=== PATIENT | male | born 1950 | race Caucasian/White ===

== ENCOUNTER 2017-07-23 06:09 | Observation (INO) | payer MEDICARE, BC ==
[~2017-07-23] VITALS: Ht 170.2 cm; Wt 75.8 kg
[2017-07-23] VITALS (13 sets, daily range): BP systolic 102–135; BP diastolic 66–82; PULSE 66–82; RESP 16–41; TEMP 97.5–98.8; O2SAT 94–100
[~2017-07-23 06:09] MED LIST: DOXY100T PO; SULF-154 PO; Z.0.NO CURRENT MEDS
[2017-07-23] MEDS ORDERED: diphenhydrAMINE HCL 50 MG/ML VIAL IVP ONE (06:30)
[2017-07-23] MEDS ORDERED: FAMOTIDINE 20 MG/2 ML VIAL IV PUSH ONE (06:30)
[2017-07-23] MEDS ORDERED: EPINEPHrine HCL (1:1000) 1 MG/ML VIAL IM ONE ×2 (06:30→06:45)
[2017-07-23] MEDS ORDERED: methylPREDNISolone SOD SUCC 125 MG/2 ML VIAL IV PUSH ONE (06:30)
[2017-07-23] MEDS ORDERED: SODIUM CHLORIDE 0.9% FLUSH 10 ML FLUSH IV FLUSH PRN ×2 (06:30→15:45)
[2017-07-23] MEDS ORDERED: LISI10TA3 PO (06:33)
[2017-07-23] MEDS ORDERED: ATOR20TA15 PO (06:33)
[2017-07-23 06:34] LABS: AUTOMATED NEUTROPHIL # 4.3 TH/MM3 (1.8-7.7); BASOPHIL # 0.1 TH/MM3 (0-0.2); BASOPHIL % 0.9 % (0.0-2.0); EOSINOPHIL # 0.3 TH/MM3 (0-0.4); EOSINOPHIL % 4.9 % (0.0-4.0); HEMATOCRIT 31.5 % (39.0-51.0); HEMOGLOBIN 10.6 GM/DL (13.0-17.0); LYMPH % 17.9 % (9.0-44.0); LYMPHOCYTE # 1.1 TH/MM3 (1.0-4.8); MEAN CELL VOLUME 91.5 FL (80.0-100.0); MEAN CORPUSCULAR HEMOGLOBIN 30.7 PG (27.0-34.0); MEAN CORPUSCULAR HGB CONC 33.6 % (32.0-36.0); MEAN PLATELET VOLUME 6.7 FL (7.0-11.0); MONO % 7.2 % (0.0-8.0); MONOCYTE # 0.4 TH/MM3 (0-0.9); NEUT % 69.1 % (16.0-70.0); PLATELET COUNT 320 TH/MM3 (150-450); RED BLOOD COUNT 3.45 MIL/MM3 (4.50-5.90); RED CELL DISTRIBUTION WIDTH 12.1 % (11.6-17.2); WHITE BLOOD COUNT 6.2 TH/MM3 (4.0-11.0)
[2017-07-23 06:44] LABS: CALCIUM 8.7 MG/DL (8.5-10.1)
[2017-07-23 06:45] LABS: BICARBONATE 26.8 MEQ/L (21.0-32.0)
[2017-07-23 06:48] LABS: CREATININE 1.1 MG/DL (0.60-1.30)
--- NOTE | 2017-07-23 07:07 | PD ---
HPI Chief Complaint: ENT Complaint Time Seen by Provider: 06:19 Travel History International Travel<30 days: No Contact w/Intl Traveler<30days: No Traveled to known affect area: No History of Present Illness HPI The patient is a 67-year-old male that awoke today at 0430 with swelling in his throat. The swelling is symmetrical and it does not make his throat sore. He denies any fever. He has no known allergies. He is not short of breath and it does not block his airway. It feels like a "lump in the throat". He does take lisinopril. PFSH Past Medical History Cancer: Yes (prostate) High Cholesterol: Yes Diabetes: Yes Diminished Hearing: No Hypertension: Yes Tetanus Vaccination: > 5 Years Influenza Vaccination: Yes ?: Not Past Surgical History Prostatectomy: Yes Social History Alcohol Use: No Tobacco Use: No Substance Use: No Allergies-Medications (Allergen,Severity, Reaction): Coded Allergies: No Known Allergies (Verified Adverse Reaction, Unknown, 07/23/17) Reported Meds & Prescriptions Reported Meds & Active Scripts Active Reported Atorvastatin (Atorvastatin Calcium) 20 Mg Tab 20 Mg PO DAILY Lisinopril 10 Mg Tab 10 Mg PO DAILY Review of Systems Except as stated in HPI: all other systems reviewed are Neg Physical Exam Narrative GENERAL: The patient is alert, oriented 3 in no respiratory distress or any other distress. His vital signs are normal. SKIN: Focused skin assessment warm/dry. HEAD: Atraumatic. Normocephalic. EYES: Pupils equal and round. No scleral icterus. No injection or drainage. ENT: No nasal bleeding or discharge. Mucous membranes pink and moist. The throat shows a swollen uvula and symmetrically swollen tonsils and soft palate. There is no airway obstruction. There is erythema present without exudate. No abscess is noted. NECK: Trachea midline. No JVD. CARDIOVASCULAR: Regular rate and rhythm. No murmur appreciated. RESPIRATORY: No accessory muscle use. Clear to auscultation. Breath sounds equal bilaterally. GASTROINTESTINAL: Abdomen soft, non-tender, nondistended. Hepatic and splenic margins not palpable. MUSCULOSKELETAL: No obvious deformities. No clubbing. No cyanosis. No edema. NEUROLOGICAL: Awake and alert. No obvious cranial nerve deficits. Motor grossly within normal limits. Normal speech. PSYCHIATRIC: Appropriate mood and affect; insight and judgment normal. Data Data Last Documented VS Vital Signs Date Time Temp Pulse Resp B/P (MAP) Pulse Ox O2 Delivery O2 Flow Rate FiO2 07/23/17 06:51 99 Room Air 07/23/17 06:39 74 133/76 07/23/17 06:30 98.6 16 Orders Orders Basic Metabolic Panel (Bmp) (07/23/17 06:19) Complete Blood Count With Diff (07/23/17 06:19) Ecg Monitoring (07/23/17 06:19) Iv Access Insert/Monitor (07/23/17:19) Oximetry (07/23/17 06:19) Diphenhydramine Inj (Benadryl Inj) (07/23/17 06:30) Methylprednisolone So Succ Inj (Solumedr (07/23/17 06:30) Famotidine Inj (Pepcid Inj) (07/23/17 06:30) Sodium Chloride 0.9% Flush (Ns Flush) (07/23/17 06:30) Epinephrine (1:1000) Inj (Adrenalin (1:1 (07/23/17 06:30) Group A Rapid Strep Screen (07/23/17 06:19) Epinephrine (1:1000) Inj (Adrenalin (1:1 (07/23/17 06:45) Strep Culture (Group A) (07/23/17 06:25) Labs Laboratory Tests Test 07/23/17 06:20 White Blood Count 6.2 TH/MM3 Red Blood Count 3.45 MIL/MM3 Hemoglobin 10.6 GM/DL Hematocrit 31.5 % Mean Corpuscular Volume 91.5 FL Mean Corpuscular Hemoglobin 30.7 PG Mean Corpuscular Hemoglobin Concent 33.6 % Red Cell Distribution Width 12.1 % Platelet Count 320 TH/MM3 Mean Platelet Volume 6.7 FL Neutrophils (%) (Auto) 69.1 % Lymphocytes (%) (Auto) 17.9 % Monocytes (%) (Auto) 7.2 % Eosinophils (%) (Auto) 4.9 % Basophils (%) (Auto) 0.9 % Neutrophils # (Auto) 4.3 TH/MM3 Lymphocytes # (Auto) 1.1 TH/MM3 Monocytes # (Auto) 0.4 TH/MM3 Eosinophils # (Auto) 0.3 TH/MM3 Basophils # (Auto) 0.1 TH/MM3 CBC Comment DIFF FINAL Differential Comment Blood Urea Nitrogen 27 MG/DL Creatinine 1.10 MG/DL Random Glucose 154 MG/DL Calcium Level 8.7 MG/DL Sodium Level 136 MEQ/L Potassium Level 3.9 MEQ/L Chloride Level 102 MEQ/L Carbon Dioxide Level 26.8 MEQ/L Anion Gap 7 MEQ/L Estimat Glomerular Filtration Rate 67 ML/MIN MDM Medical Decision Making Medical Screen Exam Complete: Yes Emergency Medical Condition: Yes Medical Record Reviewed: Yes Interpretation(s) The strep screen is negative for group A strep antigen. Differential Diagnosis Strep pharyngitis, uveitis, allergic reaction, lisinopril angioedema-unlikely Narrative Course It is now 70 6 in the morning and the patient is transferred to Dr. Riggs. Toño Leos MD Jul 23, 2017 07:07
--- NOTE | 2017-07-23 09:57 | PD ---
Physical Exam Narrative GENERAL: 67-year-old male whose speech is affected from swelling to uvula SKIN: Focused skin assessment warm/dry. HEAD: Atraumatic. Normocephalic. EYES: Pupils equal and round. No scleral icterus. No injection or drainage. ENT: No nasal bleeding or discharge. Mucous membranes pink and moist. Swelling to uvula noted NECK: Trachea midline. No JVD. CARDIOVASCULAR: Regular rate and rhythm. RESPIRATORY: No accessory muscle use. Clear to auscultation. Breath sounds equal bilaterally. MUSCULOSKELETAL: No obvious deformities. No clubbing. No cyanosis. No edema. NEUROLOGICAL: Awake and alert. No obvious cranial nerve deficits. Motor grossly within normal limits PSYCHIATRIC: Appropriate mood and affect; insight and judgment normal. Data Data Last Documented VS Vital Signs Date Time Temp Pulse Resp B/P (MAP) Pulse Ox O2 Delivery O2 Flow Rate FiO2 07/23/17 07:52 76 18 128/67 (87) 97 Room Air 07/23/17 06:30 98.6 Orders Orders Basic Metabolic Panel (Bmp) (07/23/17 06:19) Complete Blood Count With Diff (07/23/17 06:19) Ecg Monitoring (07/23/17 06:19) Iv Access Insert/Monitor (07/23/17 06:19) Oximetry (07/23/17 06:19) Diphenhydramine Inj (Benadryl Inj) (07/23/17 06:30) Methylprednisolone So Succ Inj (Solumedr (07/23/17 06:30) Famotidine Inj (Pepcid Inj) (07/23/17 06:30) Sodium Chloride 0.9% Flush (Ns Flush) (07/23/17 06:30) Epinephrine (1:1000) Inj (Adrenalin (1:1 (07/23/17 06:30) Group A Rapid Strep Screen (07/23/17 06:19) Epinephrine (1:1000) Inj (Adrenalin (1:1 (07/23/17 06:45) Strep Culture (Group A) (07/23/17 06:25) Nursing Bedside Swallow Assess .ONCE (07/23/17 09:23) Admit Order (Ed Use Only) (07/23/17 09:23) Labs Laboratory Tests Test 07/23/17 06:20 White Blood Count 6.2 TH/MM3 Red Blood Count 3.45 MIL/MM3 Hemoglobin 10.6 GM/DL Hematocrit 31.5 % Mean Corpuscular Volume 91.5 FL Mean Corpuscular Hemoglobin 30.7 PG Mean Corpuscular Hemoglobin Concent 33.6 % Red Cell Distribution Width 12.1 % Platelet Count 320 TH/MM3 Mean Platelet Volume 6.7 FL Neutrophils (%) (Auto) 69.1 % Lymphocytes (%) (Auto) 17.9 % Monocytes (%) (Auto) 7.2 % Eosinophils (%) (Auto) 4.9 % Basophils (%) (Auto) 0.9 % Neutrophils # (Auto) 4.3 TH/MM3 Lymphocytes # (Auto) 1.1 TH/MM3 Monocytes # (Auto) 0.4 TH/MM3 Eosinophils # (Auto) 0.3 TH/MM3 Basophils # (Auto) 0.1 TH/MM3 CBC Comment DIFF FINAL Differential Comment Blood Urea Nitrogen 27 MG/DL Creatinine 1.10 MG/DL Random Glucose 154 MG/DL Calcium Level 8.7 MG/DL Sodium Level 136 MEQ/L Potassium Level 3.9 MEQ/L Chloride Level 102 MEQ/L Carbon Dioxide Level 26.8 MEQ/L Anion Gap 7 MEQ/L Estimat Glomerular Filtration Rate 67 ML/MIN MDM Supervised Visit with MARIANNE: No Narrative Course Signed over to me to reevaluate after given epinephrine On reevaluation patient is about the same to be a little bit better but given area of swelling patient agrees to observation for further care and monitoring Diagnosis Primary Impression: Uvular swelling Admitting Information Admitting Physician Requests: Observation Ping Emerson MD Jul 23, 2017 09:57
[2017-07-23] MEDS ORDERED: SODIUM CHLOR 0.9% 1000 ML INJ 1,000 ML IV SCH (15:42)
[2017-07-23] MEDS ORDERED: COLA100C5 PO (15:43)
[2017-07-23] MEDS ORDERED: LACTULOSE SYRUP 20 GM/30 ML CUP PO PRN (15:45)
[2017-07-23] MEDS ORDERED: SENNOSIDES 8.6 MG TAB PO PRN (15:45)
[2017-07-23] MEDS ORDERED: TEMAZEPAM 15 MG CAP PO PRN (15:45)
[2017-07-23] MEDS ORDERED: MAGNESIUM HYDROXIDE SUSP 30 ML CUP PO PRN (15:45)
[2017-07-23] MEDS ORDERED: NALOXONE HCL 0.4 MG/ML AMP IV PUSH PRN (15:45)
[2017-07-23] MEDS ORDERED: ONDANSETRON HCL 4 MG/2 ML VIAL IVP PRN (15:45)
[2017-07-23] MEDS ORDERED: ACETAMINOPHEN 325 MG TAB PO PRN (15:45)
[2017-07-23] MEDS ORDERED: BISACODYL 10 MG SUPP RECTAL PRN (15:45)
--- NOTE | 2017-07-23 15:56 | HHI.HP ---
HPI Service [facility] Primary [facility] Physician Baldemar Christy MD Admission Diagnosis allergic reaction Diagnoses: (1) Globus sensation Diagnosis: Principal (2) Uvular swelling Diagnosis: Principal Chief Complaint: Difficulty swallowing, swollen throat Travel History International Travel<30 Days: No Contact w/Intl Traveler <30 Da: No Traveled to Known Affected Are: No History of Present Illness 67 year-old male with known history of hypertension, hyperlipidemia, prostate cancer who presented to hospital because acute onset of throat swelling , globus sensation. Patient states that he was in normal state of health when he went to bed last night and he was woke suddenly at 4:30 this morning with what he felt like his throat was swollen and he thought something was stuck in his throat. He was scared to swallow and he could not speak The patient came to emergency department for evaluation. Patient was given epinephrine, and Solu -Medrol, Benadryl, Pepcid with moderate relief. Patient does take dakotah inhibitor on a daily basis. He denies any new medications. One week ago he did have prostate surgery where he was intubated. He went for follow-up and had his catheter removed yesterday. Patient states that he does have problems with allergies, however he has not had any worsening sore throat, rhinorrhea, postnasal drip, sinus congestion. Patient clinically improved, ER physician recommended patient be observed in the hospital for further recommendations. Review of Systems Ears, nose, mouth, throat: COMPLAINS OF: Odynophagia Except as stated in HPI: all other systems reviewed are Neg Past Family Social History Past Medical History Hypertension Hyperlipidemia Prostate cancer Past Surgical History Prostatectomy Reported Medications Reported Meds & Active Scripts Active Reported Colace (Docusate Sodium) 100 Mg Capsule 100 Mg PO BID Atorvastatin (Atorvastatin Calcium) 20 Mg Tab 20 Mg PO DAILY Lisinopril 10 Mg Tab 10 Mg PO DAILY Allergies: Coded Allergies: No Known Allergies (Verified Allergy, Unknown, 07/23/17) Family History Reviewed and patient states that all of his family live until their 88-93 years old and then just dropped . Denied any heart disease, lung disease, cancer , strokes Social History Patient does drink 2 glasses of wine occasionally. Denies any tobacco or illicit drugs Physical Exam Vital Signs Vital Signs Date Time Temp Pulse Resp B/P (MAP) Pulse Ox O2 Delivery O2 Flow Rate FiO2 07/23/17 13:00 72 07/23/17 12:00 72 07/23/17 11:30 97.5 80 20 135/80 (98) 99 07/23/17 11:30 80 07/23/17 10:37 07/23/17 10:14 81 16 119/82 (94) 96 Room Air 07/23/17 07:52 76 18 128/67 (87) 97 Room Air 07/23/17 06:51 99 Room Air 07/23/17 06:39 74 133/76 07/23/17 06:30 98.6 82 16 133/76 (95) 100 07/23/17 06:30 18 Physical Exam GENERAL: Well-developed, well-nourished, in no acute distress. alert and orientated HEENT: Head is normocephalic without any lesions or masses noted. Facial features are symmetric. Eyes: Pupils equal round reactive to light. Extraocular muscles are intact. Conjunctivae were clear. Oropharyngeal: Posterior pharynx does have some erythema without any exudates, patches. Does have cobblestoning appearance of posterior pharynx. No significant edema appreciated NECK: Supple without any masses. Trachea midline no deviation. No JVD, no bruits are appreciated CARDIAC: Regular rhythm, regular rate. S1/S2 are heard. No murmurs gallops or rubs. LUNGS: Clear to auscultation bilaterally. No wheeze, rhonchi or rales. No use of accessory muscles on inspiration or expiration. ABDOMEN: Soft, nontender. Nondistended. Bowel sounds heard in all 4 quadrants. No organomegaly or masses. Negative rebound, negative guarding EXTREMITIES: No edema, pulses are equal bilaterally. No cyanosis or clubbing NEUROLOGY: Mood and affect appear appropriate. Cranial nerves II through XII grossly intact. Muscle strength 5/5 in upper and lower extremities bilaterally. Deep tendon reflexes are 2+ in upper and lower extremities bilaterally. Laboratory Laboratory Tests Test 07/23/17 06:20 White Blood Count 6.2 Red Blood Count 3.45 Hemoglobin 10.6 Hematocrit 31.5 Mean Corpuscular Volume 91.5 Mean Corpuscular Hemoglobin 30.7 Mean Corpuscular Hemoglobin Concent 33.6 Red Cell Distribution Width 12.1 Platelet Count 320 Mean Platelet Volume 6.7 Neutrophils (%) (Auto) 69.1 Lymphocytes (%) (Auto) 17.9 Monocytes (%) (Auto) 7.2 Eosinophils (%) (Auto) 4.9 Basophils (%) (Auto) 0.9 Neutrophils # (Auto) 4.3 Lymphocytes # (Auto) 1.1 Monocytes # (Auto) 0.4 Eosinophils # (Auto) 0.3 Basophils # (Auto) 0.1 CBC Comment DIFF FINAL Differential Comment Blood Urea Nitrogen 27 Creatinine 1.10 Random Glucose 154 Calcium Level 8.7 Sodium Level 136 Potassium Level 3.9 Chloride Level 102 Carbon Dioxide Level 26.8 Anion Gap 7 Estimat Glomerular Filtration Rate 67 Date/Time Source Procedure Growth Status 07/23/17 06:25 Throat Group A Streptococcus Screen Pending Received Result Diagram: 07/23/1761907/23/17619 Caprini VTE Risk Assessment Caprini VTE Risk Assessment: Mod/High Risk (score >= 2) Caprini Risk Assessment Model Point Value = 1 Point Value = 2 Point Value = 3 Point Value = 5 Age 41-60 Minor surgery BMI > 25 kg/m2 Swollen legs Varicose veins or History of unexplained or recurrent spontaneous Oral contraceptives or hormone replacement Sepsis (< 1 month) Serious lung disease, including pneumonia (< 1 month) Abnormal pulmonary function Acute myocardial infarction Congestive heart failure (< 1 month) History of inflammatory bowel disease Medical patient at bed rest Age 61-74 Arthroscopic surgery Major open surgery (> 45 min) Laparoscopic surgery (> 45 min) Malignancy Confined to bed (> 72 hours) Immobilizing plaster cast Central venous access Age >= 75 History of VTE Family history of VTE Factor V Leiden Prothrombin [id number] Lupus anticoagulant Anticardiolipin antibodies Elevated serum homocysteine Heparin-induced thrombocytopenia Other congenital or acquired thrombophilia Stroke (< 1 month) Elective arthroplasty Hip, pelvis, or leg fracture Acute spinal cord injury (< 1 month) Prophylaxis Regimen Total Risk Factor Score Risk Level Prophylaxis Regimen 0-1 Low Early ambulation 2 Moderate Order ONE of the following: *Sequential Compression Device (SCD) *Heparin 5000 units SQ BID 3-4 Higher Order ONE of the following medications: *Heparin 5000 units SQ TID *Enoxaparin/Lovenox 40 mg SQ daily (WT < 150 kg, CrCl > 30 mL/min) *Enoxaparin/Lovenox 30 mg SQ daily (WT < 150 kg, CrCl > 10-29 mL/min) *Enoxaparin/Lovenox 30 mg SQ BID (WT < 150 kg, CrCl > 30 mL/min) AND/OR *Sequential Compression Device (SCD) 5 or more Highest Order ONE of the following medications: *Heparin 5000 units SQ TID (Preferred with Epidurals) *Enoxaparin/Lovenox 40 mg SQ daily (WT < 150 kg, CrCl > 30 mL/min) *Enoxaparin/Lovenox 30 mg SQ daily (WT < 150 kg, CrCl > 10-29 mL/min) *Enoxaparin/Lovenox 30 mg SQ BID (WT < 150 kg, CrCl > 30 mL/min) AND *Sequential Compression Device (SCD) Assessment and Plan Assessment and Plan Globus sensation, odynophagia Possible acute allergic reaction, angioedema, or post intubation edema Status post Solu-Medrol, Benadryl, Reglan, which will be continued Patient is on DAKOTAH inhibitor, will hold that at this time Speech therapy for evaluation and advancement of diet Hypertension, hyperlipidemia Blood pressure stable this time Clonidine as needed DVT prevention sequential compression devices Tyler Leos Jul 23, 2017 15:56
[2017-07-23] MEDS ORDERED: cloNIDine HCL 0.1 MG TAB PO PRN (16:00)
[2017-07-23] MEDS: SODIUM CHLOR 0.9% 1000 ML INJ 1,000 ML IV SCH ×2 (16:30→22:07)
[2017-07-23] MEDS: FAMOTIDINE 20 MG/2 ML VIAL IV PUSH SCH (16:48)
[2017-07-23] MEDS: diphenhydrAMINE HCL 50 MG/ML VIAL IV PUSH SCH ×2 (16:48→22:08)
[2017-07-23] MEDS: methylPREDNISolone SOD SUCC 125 MG/2 ML VIAL IV PUSH SCH ×2 (18:03→22:08)
[2017-07-23] MEDS: SODIUM CHLORIDE 0.9% FLUSH 10 ML FLUSH IV FLUSH SCH (19:27)
[2017-07-23] MEDS ORDERED: DOCUSATE SODIUM 50 MG/SENNA 8.6 MG TAB PO SCH (21:00)
[2017-07-24 03:57] VITALS: BP 112/73; PULSE 78; RESP 25; TEMP 98.6; O2SAT 97
[2017-07-24] MEDS: methylPREDNISolone SOD SUCC 125 MG/2 ML VIAL IV PUSH SCH (05:06)
[2017-07-24] MEDS: FAMOTIDINE 20 MG/2 ML VIAL IV PUSH SCH (05:07)
[2017-07-24] MEDS: diphenhydrAMINE HCL 50 MG/ML VIAL IV PUSH SCH (05:07)
--- NOTE | 2017-07-24 07:38 | HHI.PR ---
Subjective Remarks Patient seen and examined today for follow-up on globus sensation, odynophagia. Patient states that he is significantly better. Denies any further globus sensation, difficulty swallowing, difficulty breathing. Patient clinically stable this time. Discussed with him discharge planning. Patient does understand and agree with plan. Objective Vitals Vital Signs Date Time Temp Pulse Resp B/P (MAP) Pulse Ox O2 Delivery O2 Flow Rate FiO2 07/24/17 03:57 98.6 78 25 112/73 (86) 97 07/23/17 23:57 98.8 68 20 102/66 (78) 94 07/23/17 20:00 68 07/23/17 20:00 98.4 68 24 105/71 (82) 97 07/23/17 17:00 70 07/23/17 16:00 98.2 68 27 122/80 (94) 100 07/23/17 15:00 72 07/23/17 13:00 72 07/23/17 12:00 97.5 74 41 133/81 (98) 99 07/23/17 12:00 72 07/23/17 11:30 97.5 80 20 135/80 (98) 99 07/23/17 11:30 80 07/23/17 10:37 07/23/17 10:14 81 16 119/82 (94) 96 Room Air 07/23/17 07:52 76 18 128/67 (87) 97 Room Air I/O 07/23/17 07/23/17 07/23/17 07/24/17 07/24/17 07/24/17 07:00 15:00 23:00 07:00 15:00 23:00 Intake Total 1340 ml 1000 ml Output Total 300 ml 675 ml 1750 ml Balance -300 ml 665 ml -750 ml Intake Oral 1340 ml IV Total 1000 ml Output Urine Total 300 ml 675 ml 1750 ml Stool Total 0 ml Result Diagram: 07/23/1761907/23/17 06 Objective Remarks GENERAL: Well-developed, well-nourished, in no acute distress. alert and orientated HEENT: Head is normocephalic without any lesions or masses noted. Facial features are symmetric. Eyes: Extraocular muscles are intact. Conjunctivae were clear. NECK: Supple without any masses. Trachea midline no deviation. No JVD, CARDIAC: Regular rhythm, regular rate. S1/S2 are heard. No murmurs gallops or rubs. LUNGS: Clear to auscultation bilaterally. No wheeze, rhonchi or rales. No use of accessory muscles on inspiration or expiration. ABDOMEN: Soft, nontender. Nondistended. Bowel sounds heard in all 4 quadrants. No organomegaly or masses. Negative rebound, negative guarding EXTREMITIES: No edema, pulses are equal bilaterally. No cyanosis or clubbing NEUROLOGY: Mood and affect appear appropriate. Cranial nerves II through XII grossly intact. Moving all extremities, speech is clear Urinary Catheter: No Vascular Central Line Catheter: No A/P Assessment and Plan Globus sensation, odynophagia Possible acute allergic reaction, angioedema, or post intubation edema Status post Solu-Medrol, Benadryl, Reglan, which will be continued Patient is on ANI inhibitor, will hold that at this time Speech therapy evaluated the patient and cleared him for a regular diet Hypertension, hyperlipidemia Blood pressure stable this time Clonidine as needed DVT prevention sequential compression devices Discharge Planning Discharge home in stable condition Activity: Ad john. Diet: Healthy heart diet Medications per medication reconciliation Follow-up primary medical doctor in one week Tyler Leos Jul 24, 2017 07:38
[2017-07-24] MEDS ORDERED: MEDR4PAK PO (07:41)
[2017-07-24] MEDS ORDERED: DIPH25CA PO (07:41)
[2017-07-24] MEDS ORDERED: FAMO1TAB37 PO (07:41)
--- NOTE | 2017-07-24 07:41 | HHI.DCPOC ---
Discharge Care Plan Diagnosis: (1) Globus sensation (2) Uvular swelling Goals to Promote Your Health * To prevent worsening of your condition and complications * To maintain your health at the optimal level Directions to Meet Your Goals Take your medications as prescribed Follow your dietary instruction Follow activity as directed Keep your appointments as scheduled Take your immunizations and boosters as scheduled If your symptoms worsen call your PCP, if no PCP go to Urgent Care Center or Emergency Room Smoking is Dangerous to Your Health. Avoid second hand smoke Call the 24-hour hour crisis hotline for domestic abuse at Tyler Leos Jul 24, 2017 07:41
[2017-07-24 07:57] VITALS: BP 110/70; PULSE 78; RESP 15; O2SAT 97
[2017-07-24 08:00] VITALS: PULSE 78; RESP 18; TEMP 98.8; O2SAT 97
[2017-07-24] MEDS: SODIUM CHLORIDE 0.9% FLUSH 10 ML FLUSH IV FLUSH SCH (08:06)
== END 2017-07-24 08:38 | disposition home or self-care (01) ==
LOC: PHED 06:09 → PHEDA 09:24 → PHICU 10:33
PROVIDERS: ADMIT Hospitalist; ATTEND Hospitalist
DX: F45.8 Other somatoform disorders (principal); R13.10 Dysphagia, unspecified; I10 Essential (primary) hypertension; E78.00 Pure hypercholesterolemia, unspecified; E11.9 Type 2 diabetes mellitus without complications; Z85.46 Personal history of malignant neoplasm of prostate; Z79.899 Other long term (current) drug therapy
CPT/HCPCS: 80048; 85025; 87081; 87880; 92610; 96361; 96372; 96374; 96375; 96376; 99285; G0378; G8996; G8997; G8998; J0171; J1200; J2930; J7030